=== PATIENT | female | born 1965 | race Hispanic/Latino ===

== ENCOUNTER → 2018-05-20 | Day surgery (SDC) | payer OTHER ==
[~2018-05-20] MED LIST: CALCIUM600 MG PO; FENTANYL CITRATE/PF 100MCG/2 ML INJ ONE; FISH OIL 1,0001 EAC2 PO; HYOSCYAMINE SULFATE 0.5 MG/ML INJ ONE; MIDAZOLAM HCL 2 MG/2 ML VIAL ONE; MULTIVITAMINS1 EAC7 PO; PROPOFOL IV EMULSION 10 MG/ML 50 ML VIAL ONE; ZEBETA10 MG PO
[2018-05-20 14:05] VITALS: BP 127/82
--- NOTE | 2018-05-20 14:36 | Operative Report ---
DATE OF PROCEDURE: May 20, 2018 REFERRING PHYSICIAN: Dr. Joss Francisco PROCEDURES PERFORMED 1. Esophagogastroduodenoscopy with biopsies. 2. Colonoscopy with polypectomy and biopsies. INDICATIONS FOR EGD: Heartburn. INDICATIONS FOR COLONOSCOPY: Colorectal cancer screening. MEDICATION: Patient was done under MAC. Please see anesthesiologist's note. PROCEDURE: With the patient in the left lateral decubitus position, the flexible fiberoptic Olympus gastroscope was introduced into the esophagus under direct visualization without any difficulty. There was some patchy erythema noted in the distal esophagus. A minute tongue of velvety red mucosa was noted to extend proximally from the GE junction. That was biopsied to rule out Carbajal's. The scope was then advanced with ease into the stomach, and the mucosa overlying the antrum and the body revealed some patchy erythema and low-grade to moderate edema, and biopsies were obtained and sent to stain for H. pylori. The pylorus was of normal contour and shape. It was intubated with ease. The scope was advanced all the way to the 2nd portion of the duodenum. The scope was then withdrawn slowly. Mucosa overlying the proximal 2nd portion and the duodenal bulb appeared to be within normal limits. The scope was then withdrawn back into the stomach and retroflexed. The mucosa overlying the fundus and the cardia appeared to be within normal limits. The scope was then straightened out. The stomach was decompressed. The scope was subsequently withdrawn. Patient tolerated the procedure well. IMPRESSION 1. Mild distal esophagitis. 2. Rule out Carbajal's esophagus. 3. Gastritis, biopsied. Biopsies sent to stain for Helicobacter pylori. PLAN: Follow up histology. Initiate Protonix 40 mg 1 p.o. q.a.m. a.c. Patient was then turned around. After adequate lubrication of the anal canal, a flexible fiberoptic Olympus colonoscope was inserted into the rectum with ease and advanced all the way to the cecum. A minute submucosal nodule was noted in the cecum that was biopsied. The scope was then withdrawn slowly. Mucosa overlying the ascending colon, transverse and descending appeared to be within normal limits. An approximately 8 mm sessile polyp was noted in the sigmoid colon that was removed per snare electrocautery. Two minute polyps were noted in the rectum and those were hot biopsied. The scope was then retroflexed into the distal rectum and small internal hemorrhoids were noted, none of which was actively bleeding. The scope was then straightened out. It was subsequently withdrawn. Patient tolerated the procedure well. IMPRESSION 1. Cecal submucosal nodule, minute, biopsied. 2. Sigmoid colon polyp, snared. 3. Rectal polyps times 2, hot biopsied. 4. Internal hemorrhoids, none actively bleeding. PLAN: Follow up histology. Initiate high-fiber and low-fat diet. Initiate high-fiber supplement. Patient might benefit from a followup colonoscopy in 3 years. Job#: [id number] RI cc:JOSS FRANCISCO M.D.
== END | disposition home or self-care (01) ==
LOC: OR 09:51
PROVIDERS: ATTEND Internal Medicine Gastroenterology
DX: Z12.11 Encounter for screening for malignant neoplasm of colon (principal); K63.5 Polyp of colon; K62.1 Rectal polyp; K29.00 Acute gastritis without bleeding; K29.50 Unspecified chronic gastritis without bleeding; K63.89 Other specified diseases of intestine; B96.81 Helicobacter pylori [H. pylori] as the cause of diseases classified elsewhere; K21.0 Gastro-esophageal reflux disease with esophagitis; K64.8 Other hemorrhoids; I10 Essential (primary) hypertension; R00.1 Bradycardia, unspecified; F41.9 Anxiety disorder, unspecified; Z01.810 Encounter for preprocedural cardiovascular examination
CPT/HCPCS: 43239; 45380; 45384; 45385; 93005; J1980; J2250

== ENCOUNTER → 2024-07-16 | Day surgery (SDC) | payer OTHER ==
[~2024-07-16] MED LIST changes: +ACETIC ACID15 ML LEFT EAR; +BYSTOLIC10 MG PO; +EPHEDRINE SULFATE INJ 50 MG/ML VIAL ONE; +LACTATED RINGER'S 1,000 ML ONE; +LIDOCAINE HCL 2% LOCAL INJ 5 ML SDV VIAL INJ ONE; +LORATADINE10 MG PO; +METOCLOPRAMIDE HCL 10 MG/2ML VIAL ONE; +OLMESARTAN MEDOX5 MG PO; +PANTOPRAZOLE SO40 MG PO; +PRAVASTATIN SOD40 MG PO; +PROPOFOL IV EMULSION 10 MG/ML 20 ML VIAL ONE; -PROPOFOL IV EMULSION 10 MG/ML 50 ML VIAL ONE; +PROPOFOL IV EMULSION 50 ML IV ONE
[2024-07-16 14:45] VITALS: BP 121/64; PULSE 88; RESP 18; O2SAT 98
== END | disposition home or self-care (01) ==
LOC: OR 11:15
PROVIDERS: ATTEND Internal Medicine Gastroenterology
DX: K29.50 Unspecified chronic gastritis without bleeding (principal); Z86.0100 Personal history of colon polyps, unspecified; K20.90 Esophagitis, unspecified without bleeding; K21.9 Gastro-esophageal reflux disease without esophagitis; K59.09 Other constipation; K64.8 Other hemorrhoids; Z71.3 Dietary counseling and surveillance; I10 Essential (primary) hypertension; Z71.89 Other specified counseling; E78.5 Hyperlipidemia, unspecified; J30.2 Other seasonal allergic rhinitis; Z01.810 Encounter for preprocedural cardiovascular examination; Z79.899 Other long term (current) drug therapy; Z68.26 Body mass index [BMI] 26.0-26.9, adult; Z86.19 Personal history of other infectious and parasitic diseases; Z80.0 Family history of malignant neoplasm of digestive organs
CPT/HCPCS: 43239; 45378; 93005; J1980; J2003; J2250; J2470; J2704 ×2; J2765; J3010; J7121